=== PATIENT | female | born 1970 | race Caucasian/White ===

== ENCOUNTER 2016-10-13 22:09 | Emergency (ER) | payer SELFPAY ==
[2016-10-13 23:40] VITALS: BP 144/90
== END 2016-10-13 23:40 | disposition left against medical advice (07) ==
LOC: ED 22:09
DX: Z53.21 Procedure and treatment not carried out due to patient leaving prior to being seen by health care provider (principal)

== ENCOUNTER 2017-12-17 05:59 | Emergency (ER) | payer MEDICAID ==
[~2017-12-17] VITALS: Ht 147.3 cm; Wt 76.2 kg
[2017-12-17 06:14] VITALS: Ht 147.3 cm; Wt 76.2 kg
[2017-12-17 08:03] VITALS: BP 134/85
== END 2017-12-17 08:03 | disposition home or self-care (01) ==
LOC: ED 05:59
DX: R10.13 Epigastric pain (principal); R11.2 Nausea with vomiting, unspecified
CPT/HCPCS: J1885

== ENCOUNTER 2018-01-05 05:16 | Inpatient (IN) | payer MEDICAID ==
[~2018-01-05] VITALS: Ht 152.4 cm; Wt 75.7 kg
[2018-01-05 05:30] VITALS: Ht 152.4 cm; Wt 75.7 kg
[2018-01-05 06:28] LABS: BASOPHIL % 0.3 % (0-2); PLATELET COUNT 211 x10^3mcL (130-400)
[2018-01-05 06:43] LABS: CALCIUM 8.6 mg/dL (8.5-10.1); CARBON DIOXIDE 25.7 mmol/L (21-32); CHLORIDE SERUM 104 mmol/L (98-107); CREATININE SERUM 0.9 mg/dL (0.6-1.0); GFR1 > 60 mL/min; GLUCOSE SERUM 115 mg/dL (74-106); POTASSIUM SERUM 3.8 mmol/L (3.5-5.1); SODIUM SERUM 137 mmol/L (136-145)
[2018-01-05 06:45] LABS: RED CELL DISTRIBUTION WIDTH 14.8 % (11.5-14.5)
[2018-01-05 06:47] LABS: ALBUMIN 3.4 g/dL (3.4-5.0); ALKALINE PHOSPHATASE 130 U/L (46-116); ALT/SGPT 195 U/L (14-59); AST/SGOT 336 U/L (15-37); BILIRUBIN TOTAL 1.35 mg/dL (0.20-1.00); LIPASE 90 IU/L (73-393); TOTAL PROTEIN, SERUM 7.6 g/dL (6.4-8.2)
[2018-01-05] MEDS ORDERED: PRILOSEC OTC20 M1 PO (07:38)
[2018-01-05] MEDS ORDERED: ZOF4 PO (07:38)
[2018-01-05 08:07] LABS: MAGNESIUM 2.1 mg/dL (1.8-2.4); PHOSPHOROUS 2.8 mg/dL (2.5-4.9)
[2018-01-05 08:13] LABS: CHOLESTEROL/HDL RATIO 3.3; T3 TOTAL 1.15 ng/mL
[2018-01-05 08:34] LABS: FREE T4 1.21 ng/dL (0.76-1.46); FREE THYROXINE INDEX 3.3 ug/dL (1.4-4.5); T4(THYROXINE) 8.5 ug/dL (4.7-13.3)
[2018-01-05 09:00] VITALS: BP 112/44
[2018-01-05 13:21] VITALS: BP 112/44
[2018-01-05 17:43] VITALS: BP 127/85
[2018-01-05 22:38] VITALS: BP 126/73
[2018-01-06 00:04] LABS: UA SPECIFIC GRAVITY 1.025 (1.005-1.035); microscopic required? YES; urine erythrocyte NEGATIVE (NEGATIVE)
[2018-01-06 00:29] LABS: AMPHETAMINE QUAL UR NONE DETECTED (See below)
[2018-01-06 05:39] VITALS: BP 102/60
[2018-01-06 06:30] LABS: CALCIUM 8.6 mg/dL (8.5-10.1); CARBON DIOXIDE 26.3 mmol/L (21-32); CHLORIDE SERUM 105 mmol/L (98-107); CREATININE SERUM 0.9 mg/dL (0.6-1.0); GFR1 > 60 mL/min; GLUCOSE SERUM 109 mg/dL (74-106); MAGNESIUM 2.1 mg/dL (1.8-2.4); PHOSPHOROUS 3.4 mg/dL (2.5-4.9); POTASSIUM SERUM 3.9 mmol/L (3.5-5.1); SODIUM SERUM 140 mmol/L (136-145)
[2018-01-06 06:44] LABS: BASOPHIL % 0 % (0-2); PLATELET COUNT 109 x10^3mcL (130-400); RED CELL DISTRIBUTION WIDTH 15.1 % (11.5-14.5)
[2018-01-06 06:45] LABS: rbc morphology (normal/abnorm) ABNORMAL (NORMAL)
[2018-01-06] MEDS ORDERED: NORCO1 TA1 PO (08:57)
[2018-01-06 09:25] VITALS: BP 124/73
[2018-01-06 13:26] VITALS: BP 124/73
[2018-01-06 17:58] VITALS: BP 125/76
[2018-01-06 19:03] LABS: IRON 114 ug/dL (50-170); TOTAL IRON BINDING CAPACITY 340 ug/dL (250-450)
[2018-01-06 19:05] LABS: RED BLOOD CELLS 4.78 M/mm3 (4.10-5.10)
[2018-01-06 19:50] VITALS: BP 106/62
[2018-01-07 05:53] VITALS: BP 104/68
[2018-01-07 06:28] LABS: CALCIUM 8.7 mg/dL (8.5-10.1); CARBON DIOXIDE 27.3 mmol/L (21-32); CHLORIDE SERUM 110 mmol/L (98-107); CREATININE SERUM 0.9 mg/dL (0.6-1.0); GFR1 > 60 mL/min; GLUCOSE SERUM 86 mg/dL (74-106); MAGNESIUM 2.2 mg/dL (1.8-2.4); PHOSPHOROUS 2.1 mg/dL (2.5-4.9); POTASSIUM SERUM 3.6 mmol/L (3.5-5.1); SODIUM SERUM 144 mmol/L (136-145)
[2018-01-07 07:27] LABS: BASOPHIL % 0.5 % (0-2)
[2018-01-07 07:42] LABS: RED CELL DISTRIBUTION WIDTH 15.3 % (11.5-14.5)
[2018-01-07 09:46] VITALS: BP 124/78
[2018-01-07 10:17] LABS: PLATELET COUNT 249 x10^3mcL (130-400)
[2018-01-07 11:45] VITALS: BP 124/78
[2018-01-07 13:24] VITALS: BP 129/79
== END 2018-01-07 16:00 | disposition home or self-care (01) | DRG 263 ==
LOC: ED 05:16 → DU 07:28
PROVIDERS: Emergency Medicine; Family Medicine; Surgery
PROC: 0FT44ZZ Resection of Gallbladder, Percutaneous Endoscopic Approach (ICD-10-PCS; principal; 2018-01-05 12:00)
DX: K80.00 Calculus of gallbladder with acute cholecystitis without obstruction (principal); N17.0 Acute kidney failure with tubular necrosis; R73.03 Prediabetes; E78.5 Hyperlipidemia, unspecified; D64.9 Anemia, unspecified; R80.9 Proteinuria, unspecified; E83.39 Other disorders of phosphorus metabolism; Z68.28 Body mass index [BMI] 28.0-28.9, adult
CPT/HCPCS: 83880; 84439; C1887; J0330; J1170; J2250; J2405; J2543; J2550; J2704; J2710; J3010; J3490; J7030; Q0092